=== PATIENT | male | born 1960 | race Caucasian/White ===

== ENCOUNTER 2020-12-02 19:50 | Emergency (ER) | payer SELFPAY ==
--- NOTE | ~2020-12-02 | CT_ITS ---
EXAMINATION: CT abdomen pelvis w con DATE: 12/02/2020 22:19 INDICATION: Right-sided abdominal pain, back pain TECHNIQUE: Computed tomography (CT) of the abdomen and pelvis was performed with 100 cc Omnipaque 350 intravenous contrast. Automated exposure control and iterative reconstruction technique were employe d. Exam dose: 283.13 mGy-cm total exam DLP. COMPARISON: None. FINDINGS: Severe emphysematous changes are evident in the lower lung zones with bilateral bullous franco nge; honeycombing in the posterolateral lung bases, right worse than left. No pulmonary consolidation . Heart size is within normal range. Is no pericardial or pleural effusion. 1.8 cm and 8 mm probable left hepatic cysts. Probable small hepatic dome cyst, right hepatic lobe. The gallbladder is present. No pericholecystic fluid or fat stranding. No bile duct or pancreatic emmanuel t dilatation. No pancreatic mass lesion or calcification. Normal splenic size. No adrenal mass lesion. Multiple right renal cysts, measuring up to 1.8 cm maximal dimension. There are couple of very small left renal cysts. No urinary tract calculus or hydroureteronephrosis. Normal caliber of the abdominal aorta. No intraperitoneal or retroperitoneal or pelvic mass lesion or adenopathy or ascites is evident. The urinary bladder is unremarkable. Moderate prostate enlargement. Normal appendix. No bowel obstruction, bowel wall thickening, pneumatosis or intraperitoneal free air . Small fat-containing umbilical hernia. Multiple old healed right rib fractures. Right L5 pars interarticularis defect. IMPRESSION: Hepatic and renal cysts Normal appendix Bullous emphysema. Reviewed, dictated and finalized at [facility] Reviewed, dictated and finalized at [facility]. ADMINISTRATOR
[2020-12-02 19:55] VITALS: BP 126/78; PULSE 78; RESP 18; TEMP 36.5; O2SAT 97
[2020-12-02 20:16] LABS: Basophils Absolute Auto 0.1 K/mm3 (0.0-0.1); Basophils Percent Auto 0.8 % (0.2-1.2); Eosinophils Absolute Auto 0.3 K/mm3 (0-0.3); Hemoglobin 15.9 g/dL (14.0-18.0); Immature Granulocyte Absolute 0.03 K/mm3 (0.00-0.031); Immature Granulocyte Percent A 0.3 % (0-0.5); Lymphocytes Absolute Auto 2.15 K/mm3 (0.9-3.2); Lymphocytes Percent Auto 23.9 % (18.3-44.2); Mean Corpuscular HGB Conc 35.3 g/dl (32-36); Mean Corpuscular Hemoglobin 32.3 pg (26-34); Mean Corpuscular Volume 91.3 fl (80-100); Mean Platelet Volume 9.6 fl (7.4-10.4); Monocytes Absolute Auto 0.7 K/mm3 (0.1-0.6); Monocytes Percent Auto 8.1 % (2.6-8.5); Neutrophils Absolute Auto 5.8 K/mm3 (1.3-6.7); Neutrophils Percent Auto 63.9 % (45.5-73.1); Platelet Count Result 261 k/mm3 (150-375); Red Blood Count 4.93 M/mm3 (4.6-6.20); Red Cell Distribution Width 12.9 % (11.5-14.5)
[2020-12-02 20:29] LABS: Alanine Aminotransferase 26 U/L (4-50); Albumin Level 4.2 g/dL (3.5-5.1); Alkaline Phosphatase 74 U/L (38-126); Anion Gap 6 mmol/L (8-16); Aspartate Amino Transferase 23 U/L (17-59); Bilirubin,Total 0.4 mg/dL (0.2-1.3); Blood Urea Nitrogen 19 mg/dL (9-20); Calcium 8.8 mg/dL (8.4-10.2); Carbon Dioxide 27 mmol/L (22-30); Chloride 105 mmol/L (98-107); Estimated CRCL calculation 55 ml/min; Estimated Glomerular Filt Rate > 60; Glucose 132 mg/dL (75-110); Lipase 79 U/L (23-300); Potassium 3.7 mmol/L (3.4-5.0); Sodium 138 mmol/L (137-145)
[2020-12-02 21:06] LABS: Add Urine Microscopic? NO; Appearance Urine Clear (Clear); Bilirubin Urine Negative (Negative); Blood Urine Negative (Negative); Color Urine Yellow (Yellow); Glucose Urine UA Negative (Negative); Ketones Urine Negative (Negative); Leukocyte Esterase Ur Negative LEU/UL (Negative); Nitrate Urine Negative (Negative); Protein Urine Negative (Negative); Specific Grav Ur 1.016 (1.001-1.035); Urobilinogen Urine Negative mg/dL (<2.0)
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
== END 2020-12-02 23:48 | disposition home or self-care (01) ==
PROVIDERS: Emergency Medicine; Emergency Provider Emergency Medicine
DX: M54.42 Lumbago with sciatica, left side (principal); K76.89 Other specified diseases of liver; N28.1 Cyst of kidney, acquired; J43.9 Emphysema, unspecified
CPT/HCPCS: 36415; 74177; 80053; 81003; 83690; 85025; 99284; Q9967

== ENCOUNTER 2021-01-18 15:04 | Emergency (ER) | payer MEDICARE, SELFPAY ==
[2021-01-18 15:18] VITALS: BP 124/80; PULSE 71; RESP 16; TEMP 35.3; O2SAT 98
[2021-01-18 15:48] VITALS: BP 124/80; PULSE 74; RESP 18; TEMP 36.2; O2SAT 98
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
== END 2021-01-18 17:59 | disposition home or self-care (01) ==
PROVIDERS: Emergency Provider Emergency Medicine
DX: M62.838 Other muscle spasm (principal)
CPT/HCPCS: 99281

== ENCOUNTER 2025-11-01 05:54 | Emergency (ER) | payer MEDICARE, SELFPAY ==
[2025-11-01 05:15] VITALS: BP 134/79; PULSE 91; RESP 18; TEMP 36.6; O2SAT 97
[2025-11-01 05:30] VITALS: BP 127/88; O2SAT 96
--- NOTE | 2025-11-01 05:30 | ECG_ITS ---
Test Date: 2025-11-01 05:39:56 Measurements Intervals [place] Rate: 80 P: 83 RI: 142 QRS: 34 QRSD: 97 T: 56 QT: 360 QTc: 416 Interpretive Statements SINUS RHYTHM WITH OCCASIONAL SUPRAVENTRICULAR PREMATURE COMPLEXES INCOMPLETE RIGHT BUNDLE BRANCH BLOCK BASELINE ARTIFACT- I, III, AVL BORDERLINE ECG No previous ECG available for comparison Electronically Signed On 11-01-2025 08:15:05 [employer] by David Delaney D.O.
--- NOTE | 2025-11-01 05:30 | ED.RECABL ---
HPI - Recheck/Abnormal Lab/Rx General Chief Complaint: Recheck/Abnormal Lab/Rx Stated Complaint: HIGH B/P X 3 DAYS History of Present Illness HPI narrative: 65-year-old male with history of PTSD presenting to the emergency department today with complaints of elevated blood pressure readings. Patient states he lives in apartment with obnoxious neighbors who are yelling and screaming occasionally and this bothers him. Patient states he knows his blood pressure gets high and he gets angry with vision blurring when this happens. He tried to talk to the neighbors but they only got louder. He walked to the nearest police department for some help. States he had no symptoms after he calmed down. Patient states he does not seek medical attention and does not have a doctor or take any medications but was worried about his potential blood pressure being high causing some of symptoms. No history of coronary disease, no history of strokes. Does not take any prescription medications. Self denies any substance use. Denies any weakness, paresthesias, difficulty speaking, headache, nausea, vomiting, chest pain, shortness a breath. Denies any symptoms at this time. States that he knows he gets symptoms when he gets stressed or feels like his blood pressure is high and attributes this to his current living situation as he has no symptoms when he is away from home or when his neighbors are not yelling. Related Data Home Medications ?Medication ?Instructions ?Recorded ?Confirmed ?Last Taken ?Type No Home Medications 01/18/21 01/18/21 Unknown History Allergies Allergy/AdvReac Type Severity Reaction Status Date / Time No Known Allergies Allergy Verified 01/18/21 15:52 Review of Systems Review of Systems: As reviewed above in HPI All systems reviewed & are unremarkable except as noted in HPI and below Exam Narrative: GENERAL: [Well-appearing, well-nourished, and in no acute distress.] HEAD: [Normocephalic, atraumatic.] EYES: [PERRLA and EOMI.] ENT: Nares clear, no rhinorrhea or epistaxis. Mucous membranes moist. NECK: Supple. CHEST: [Clear to auscultation. No respiratory distress.] HEART: [Regular rate and rhythm]. No murmur heard. [Normal peripheral pulses.] ABDOMEN: [Soft, nondistended], [nontender], [No rigidity or guarding] EXTREMITIES: Normal range of motion. [No edema.] SKIN: Warm, dry, no rash. NEURO: No neurological deficits. Normal vision. Alert oriented x3, no weakness, drift or asymmetry. No sensory changes. Ambulatory with a steady gait. No ataxia. PSYCH: [Normal mood and affect.] Course Vital Signs Vital signs: Vital Signs Temperature 36.6 C 11/01/25 05:15 Pulse Rate 91 11/01/25 05:15 Respiratory Rate 18 11/01/25 05:15 Blood Pressure 134/79 11/01/25 05:15 Pulse Oximetry 97 11/01/25 05:15 Oxygen Delivery Room Air 11/01/25 05:15 Temperature 36.6 C 11/01/25 05:15 Pulse Rate 69 11/01/25 07:11 Respiratory Rate 19 11/01/25 07:11 Blood Pressure 107/65 11/01/25 07:11 Pulse Oximetry 100 11/01/25 07:11 Oxygen Delivery Room Air 11/01/25 05:15 MDM MDM Narrative Medical decision making narrative: 65-year-old male with history of PTSD presenting to the emergency department today with complaints of elevated blood pressure readings. Patient states he lives in apartment with obnoxious neighbors who are yelling and screaming occasionally and this bothers him. Patient states he knows his blood pressure gets high and he gets angry with vision blurring when this happens. He tried to talk to the neighbors but they only got louder. He walked to the nearest police department for some help. States he had no symptoms after he calmed down. Patient states he does not seek medical attention and does not have a doctor or take any medications but was worried about his potential blood pressure being high causing some of symptoms. No history of coronary disease, no history of strokes. Does not take any prescription medications. Self denies any substance use. Denies any weakness, paresthesias, difficulty speaking, headache, nausea, vomiting, chest pain, shortness a breath. Denies any symptoms at this time. States that he knows he gets symptoms when he gets stressed or feels like his blood pressure is high and attributes this to his current living situation as he has no symptoms when he is away from home or when his neighbors are not yelling. Patient has an unremarkable physical examination and normal neurological assessment. Normal vital signs without any tachycardia, fever, hypoxemia or significant blood pressure derangements. Patient states he is concerned about his heart health as he does not seek doctors and also wants to sure that he is okay. Given that he is asymptomatic, his symptoms at that time were likely attributed to his social circumstances rather than pathology but given that he does not have any known comorbidities are chronic medical conditions as he does not see a doctor will do some screening laboratory studies an EKG. Laboratory studies showed no leukocytosis or anemia. Normal platelet count. Electrolytes unremarkable. Creatinine 1.35 mildly elevated from his previous level several years ago. Likely chronic in nature. Negative troponin. EKG shows sinus rhythm. No ST segment changes. Normal QTC interval. Patient is asymptomatic and discussed that he will need a primary care provider for further evaluation follow-up on outpatient but no urgent or emergent concerns found today. Safe for discharge home with return precautions. Differential Diagnosis Differential Diagnosis: Stress, anxiety, PTSD, hypertension, kidney disease Lab Data MDM Lab Attestation statement: I personally reviewed the patient's lab results. 11/01/25 05:40 11/01/25 05:40 Labs: Lab Results 11/01/25 Range/Units 05:40 WBC 8.0 (4.5-10.0) K/mm3 RBC 4.84 (4.6-6.20) M/mm3 Hgb 15.8 (14.0-18.0) g/dL Hct 45.1 (42.0-52.0) % MCV 93.2 (80-100) fl MCH 32.6 (26-34) pg MCHC 35.0 (32-36) g/dl RDW 13.2 (11.5-14.5) % Plt Count 301 (150-375) k/mm3 MPV 9.3 (7.4-10.4) fl Immature Gran % (Auto) 0.4 (0-0.5) % Neut % (Auto) 71.8 (45.5-73.1) % Lymph % (Auto) 16.9 L (18.3-44.2) % [place] % (Auto) 8.2 (2.6-8.5) % Eos % (Auto) 1.9 (0-4.4) % Baso % (Auto) 0.8 (0.2-1.2) % Lymph # (Auto) 1.34 (0.9-3.2) K/mm3 [place] # (Auto) 0.7 H (0.1-0.6) K/mm3 Eos # (Auto) 0.2 (0-0.3) K/mm3 Baso # (Auto) 0.1 (0.0-0.1) K/mm3 Abs Immat Gran (auto) 0.03 (0.00-0.031) K/mm3 Absolute Neuts (auto) 5.7 (1.3-6.7) K/mm3 Absolute Nucleated RBC 0.000 (0.0-0.012) K/mm3 Nucleated RBC % 0.0 (0.0-0.2) % Sodium 136 L (137-145) mmol/L Potassium 4.2 (3.4-5.0) mmol/L Chloride 105 (98-107) mmol/L Carbon Dioxide 23 (22-30) mmol/L Anion Gap 8 (4-12) mmol/L BUN 15 (9-20) mg/dL Creatinine 1.35 H (0.7-1.3) mg/dL Estim Creat Clear Calc 50 ml/min Estimated GFR 53 L (59 - ) Glucose 124 H (65-110) mg/dL Calcium 9.0 (8.4-10.2) mg/dL Magnesium 2.0 (1.6-2.3) mg/dL Troponin I < 0.012 (0.000-0.034) ng/mL TSH (Reflex) 1.110 (0.465-4.68) uIU/mL Discharge Plan Discharge Clinical Impression: Asymptomatic hypertension, Elevated serum creatinine Patient Disposition: Home Condition: Stable Instructions: Antibiotic Form, Chronic Kidney Disease (ED), Chronic Hypertension (DC) Additional Instructions: Laboratory studies show mildly elevated serum creatinine which is likely chronic kidney disease versus some mild dehydration. Will need to be monitored outpatient with a primary doctor for management. EKG and cardiac enzymes are normal. No emergent or urgent concerns found today. Vital signs are stable and normal. We have provided you a contact for a primary care provider to follow with you on outpatient basis. Return with any emergent concerns at any time. Patient Language: Chinese Prescriptions: No Action No Home Medications Follow-up/Referrals: Krista Burch MD [Physician, Family Practice] - 2 Days Referral Note: establish with PCP PHYSICIAN,[facility] APPLICATION ANALYST [Primary Care Provider, Internal Medicine] Time of Disposition: 06:46
[2025-11-01 05:46] VITALS: BP 117/72; O2SAT 96
[2025-11-01 05:47] LABS: Hematocrit 45.1 % (42.0-52.0); Hemoglobin 15.8 g/dL (14.0-18.0); Immature Granulocyte Percent A 0.4 % (0-0.5); Lymphocytes Absolute Auto 1.34 K/mm3 (0.9-3.2); Mean Corpuscular HGB Conc 35.0 g/dl (32-36); Mean Corpuscular Hemoglobin 32.6 pg (26-34); Mean Corpuscular Volume 93.2 fl (80-100); Nucleated Red Blood Cells Absolute Auto 0.000 K/mm3 (0.0-0.012); Nucleated Red Blood Cells Perc 0.0 % (0.0-0.2); Platelet Count Result 301 k/mm3 (150-375); Red Blood Count 4.84 M/mm3 (4.6-6.20); White Blood Count 8.0 K/mm3 (4.5-10.0)
[2025-11-01 06:01] VITALS: BP 114/72; O2SAT 94
[2025-11-01 06:11] LABS: Troponin I < 0.012 ng/mL (0.000-0.034)
[2025-11-01 06:13] LABS: Anion Gap 8 mmol/L (4-12); Blood Urea Nitrogen 15 mg/dL (9-20); Calcium 9.0 mg/dL (8.4-10.2); Carbon Dioxide 23 mmol/L (22-30); Chloride 105 mmol/L (98-107); Estimated CRCL calculation 50 ml/min; Estimated Glomerular Filt Rate 53; Glucose 124 mg/dL (65-110); Magnesium 2.0 mg/dL (1.6-2.3); Potassium 4.2 mmol/L (3.4-5.0); Sodium 136 mmol/L (137-145)
[2025-11-01 06:16] VITALS: BP 114/75; PULSE 77; RESP 18; O2SAT 97
[2025-11-01 07:11] VITALS: BP 107/65; PULSE 69; RESP 19; O2SAT 100
[2025-11-01 07:30] LABS: Thyroid Stimulating Hormone Reflex 1.110 uIU/mL (0.465-4.68)
== END 2025-11-01 07:12 | disposition home or self-care (01) ==
PROVIDERS: Emergency Provider Student in an Organized Health Care Education/Training Program
DX: I10 Essential (primary) hypertension (principal); R79.89 Other specified abnormal findings of blood chemistry; F43.10 Post-traumatic stress disorder, unspecified
CPT/HCPCS: 36415; 80048; 83735; 84443; 84484; 85025; 93005; 96360; 99283; 99284